=== PATIENT | female | born 1955 | race American Indian/Alaskan Native ===

== ENCOUNTER 2016-12-20 02:38 | Inpatient (IN) | payer OTHER ==
[2016-12-20] MEDS ORDERED: NACL 0.9% 500 ML 500 ML IV ONE (02:49)
[2016-12-20] MEDS ORDERED: TYLENOL ONE (03:26)
[2016-12-20] MEDS ORDERED: TYLENOL PO ONE (03:32)
[2016-12-20 03:48] LABS: Basophils % (Auto) 0.1 % (0.0-1.8); Hematocrit 38.8 % (30.3-42.9); Mean Corpuscular HGB Conc 34 % (30-34); Mean Corpuscular Hemoglobin 29 pg (28-32); Mean Corpuscular Volume 87 fl (79-97); Platelet Count 213 K/mm3 (140-440); Red Blood Count 4.47 M/mm3 (3.65-5.03); Red Cell Distribution Width 14.3 % (13.2-15.2); White Blood Count 12.9 K/mm3 (4.5-11.0)
[2016-12-20 03:57] LABS: INR 1.03 (0.87-1.13)
[2016-12-20 04:30] LABS: Bacteria,Urine 1+ /HPF (Negative); Bilirubin,Urine NEG (Negative); Blood,Urine NEG (Negative); Ketones,Urine NEG (Negative); Leukocyte Esterase,Urine SM (Negative); Mucus,Urine FEW /HPF; Nitrite,Urine NEG (Negative); Protein,Urine <15 mg/dL mg/dL (Negative)
--- NOTE | 2016-12-20 04:32 | Emergency Department Report ---
ED Fever HPI - General Chief Complaint: Fever Stated Complaint: FEVER Time Seen by Provider: 12/20/16 04:04 - History of Present Illness Initial Comments: 61-year-old female who has been having symptoms of URI for approximately 2 weeks states that she developed a fever today. Patient states that she didn't feel achy of a headache fever to 102 last evening. She denies nausea vomiting abdominal pain. She denies chest pain. She's had some cough and runny nose. Timing/Duration: this evening Fever Severity/Quality: greater than 102 F Associated Symptoms: cough, headache, muscle aches. denies: abdominal pain, chest pain, confusion, nausea/vomiting, rash, shortness of breath, sore throat, stiff neck, weakness ED Review of Systems ROS: Stated complaint: FEVER Other details as noted in HPI Comment: All other systems reviewed and negative Constitutional: chills, fever, malaise Eyes: denies: eye pain, eye discharge, vision change ENT: throat pain, congestion. denies: ear pain Respiratory: cough. denies: shortness of breath, wheezing Cardiovascular: denies: chest pain, palpitations Endocrine: no symptoms reported Gastrointestinal: denies: abdominal pain, nausea, diarrhea Genitourinary: denies: urgency, dysuria, discharge Musculoskeletal: denies: back pain, joint swelling, arthralgia Skin: denies: rash, lesions Neurological: denies: headache, weakness, paresthesias Psychiatric: denies: anxiety, depression Hematological/Lymphatic: denies: easy bleeding, easy bruising ED Past Medical Hx - Past Medical History Previous Medical History?: Yes Hx Hypertension: Yes - Surgical History Past Surgical History?: Yes Additional Surgical History: rt knee surgery - Family History Family history: no significant - Social History Smoking Status: Never Smoker Substance Use Type: Alcohol ED Physical Exam - General Limitations: No Limitations General appearance: alert, in no apparent distress - Head Head exam: Present: atraumatic, normocephalic - Eye Eye exam: Present: normal appearance, PERRL. Absent: scleral icterus, conjunctival injection - ENT ENT exam: Present: mucous membranes moist - Neck Neck exam: Present: normal inspection - Respiratory Respiratory exam: Present: normal lung sounds bilaterally. Absent: respiratory distress, wheezes - Cardiovascular Cardiovascular Exam: Present: normal rhythm, tachycardia, normal heart sounds. Absent: systolic murmur, diastolic murmur, rubs, gallop - GI/Abdominal GI/Abdominal exam: Present: soft, normal bowel sounds. Absent: distended, tenderness - Extremities Exam Extremities exam: Present: normal inspection, normal capillary refill - Back Exam Back exam: Present: normal inspection - Neurological Exam Neurological exam: Present: alert, oriented X3 - Psychiatric Psychiatric exam: Present: normal affect, normal mood - Skin Skin exam: Present: warm, dry, intact, normal color. Absent: rash ED Course Vital Signs 12/20/16 12/20/16 12/20/16 02:43 03:20 03:30 Temperature 102.4 F H Pulse Rate 141 H 114 H 114 H Respiratory 22 30 H 33 H Rate Blood Pressure 155/41 157/75 O2 Sat by Pulse 100 94 Oximetry 12/20/16 12/20/16 12/20/16 03:34 03:46 03:58 Temperature 99.9 F H Pulse Rate 114 H Respiratory Rate Blood Pressure 163/73 O2 Sat by Pulse Oximetry 12/20/16 12/20/16 12/20/16 04:00 04:15 04:17 Temperature Pulse Rate 111 H 107 H Respiratory 23 26 H 20 Rate Blood Pressure 154/78 150/77 O2 Sat by Pulse 97 Oximetry ED Medical Decision Making - Lab Data Result diagrams: 12/20/16 02:53 12/20/16 02:53 Laboratory Results - last 24 hr 12/20/16 12/20/16 12/20/16 02:53 02:53 02:53 WBC 12.9 H RBC 4.47 Hgb 13.0 Hct 38.8 MCV 87 MCH 29 MCHC 34 RDW 14.3 Plt Count 213 Lymph % (Auto) 3.6 L [place] % (Auto) 8.5 H Eos % (Auto) 0.0 Baso % (Auto) 0.1 Lymph # 0.5 L [place] # 1.1 H Eos # 0.0 Baso # 0.0 Seg Neutrophils % 87.8 H Seg Neutrophils # 11.3 H PT 14.0 INR 1.03 VBG pH 7.478 H Urine Color Urine Turbidity Urine pH Ur Specific [place] Urine Protein Urine Glucose (UA) Urine Ketones Urine Blood Urine Nitrite Urine Bilirubin Urine Urobilinogen Ur Leukocyte Esterase Urine WBC (Auto) Urine RBC (Auto) U Epithel Cells (Auto) Urine Bacteria (Auto) Urine Mucus 12/20/16 03:58 WBC RBC Hgb Hct MCV MCH MCHC RDW Plt Count Lymph % (Auto) [place] % (Auto) Eos % (Auto) Baso % (Auto) Lymph # [place] # Eos # Baso # Seg Neutrophils % Seg Neutrophils # PT INR VBG pH Urine Color Yellow Urine Turbidity Clear Urine pH 8.0 H Ur Specific [place] 1.013 Urine Protein <15 mg/dl Urine Glucose (UA) Neg Urine Ketones Neg Urine Blood Neg Urine Nitrite Neg Urine Bilirubin Neg Urine Urobilinogen 2.0 Ur Leukocyte Esterase Sm Urine WBC (Auto) 11.0 H Urine RBC (Auto) 4.0 U Epithel Cells (Auto) < 1.0 Urine Bacteria (Auto) 1+ Urine Mucus Few - Radiology Data Radiology results: report reviewed - Medical Decision Making Patient is a 61-year-old female here with fever and chills. Patient has had a cough. Fever to 102. Chest x-ray shows infiltrate on the right. Plan treat with IV antibiotics and likely overnight admission. Discussed case with hospitalist Portions of this chart were dictated with dictation software. There may be dictation errors contained within this note. Critical care attestation.: If time is entered above; I have spent that time in minutes in the direct care of this critically ill patient, excluding procedure time. ED Disposition Clinical Impression: Pneumonia Disposition: DC-09 OP ADMIT IP TO THIS HOSP Is pt being admited?: Yes Condition: Stable Instructions: Bacterial Pneumonia (ED) Referrals: PRIMARY CARE, [Primary Care Provider] - 3-5 Days
[2016-12-20] MEDS ORDERED: ZITHROMAX 500 MG in NACL 0.9% 250ML 250 ML IV ONE (04:34)
[2016-12-20] MEDS ORDERED: ROCEPHIN/NS 2 GM/100 ML 2 GM/100 ML BAG IV ONE (04:35)
[2016-12-20 04:42] LABS: Alanine Aminotransferase 27 units/L (7-56); Albumin 3.9 g/dL (3.9-5); Alkaline Phosphatase 74 units/L (35-129); Anion Gap 21 mmol/L; BUN/Creatinine Ratio 8; Blood Urea Nitrogen 8 mg/dL (7-17); Carbon Dioxide 22 mmol/L (22-30); Chloride 101.1 mmol/L (98-107); Glucose 150 mg/dL (65-100); Potassium 3.6 mmol/L (3.6-5.0); Sodium 140 mmol/L (137-145); Total Protein 7.7 g/dL (6.3-8.2)
--- NOTE | 2016-12-20 07:17 | XRay Report ---
AP CHEST: HISTORY: Sepsis There is a focal airspace opacity just lateral to the right hilum measuring 4 x 6 cm. This appears to represent a focal pneumonia. The remainder of the lungs are clear. No pleural effusion or pneumothorax. Normal heart and mediastinal structures. IMPRESSION: Early right lung pneumonia.
[2016-12-20] MEDS ORDERED: MILK OF MAGNESIA PO PRN (07:41)
[2016-12-20] MEDS ORDERED: DULCOLAX PR PRN (07:41)
[2016-12-20] MEDS ORDERED: ZOFRAN IV PRN (07:49)
--- NOTE | 2016-12-20 07:55 | History and Physical Report ---
History of Present Illness Date of examination: 12/20/16 Date of admission: 12/20/2016 Chief complaint: Dyspnea on exertion, cough, fever and headache. History of present illness: Patient is a 61 years old black female with past medical history of hypertension who presents to the emergency department presenting with 2 weeks of worsening dyspnea on light exertion, cough, fever and headache. Just over 2weeks ago the patient was at his normal baseline state of health. Now she has had progressive worsening of his dyspnea on exertion (PADILLA) to where he cannot walk across a room without becoming short of breath; she has never had anything like this before. she says the breathing troubles are from her lungs/chest and not her nose/congestion. She states walking or working brings on her breathing troubles and coughing and resting will help relieve those symptoms. Additionally, she has a productive cough with whitish mucus that is not bloody. patient also reported a subjective fever for the past 2 days. Past History Past Medical History: hypertension Past Surgical History: Other (knee surgery) Social history: lives with family. denies: smoking, alcohol abuse Family history: CAD, hypertension Medications and Allergies Allergies Allergy/AdvReac Type Severity Reaction Status Date / Time Penicillins Allergy Hives Verified 12/20/16 02:42 Home Medications Medication Instructions Recorded Confirmed Last Taken Type amLODIPine [Norvasc] 10 mg PO DAILY 12/20/16 12/20/16 12/18/16 History Active Meds: Active Medications Acetaminophen (Tylenol) 650 mg PO Q4H PRN PRN Reason: Pain MILD(1-3)/Fever >100.5/BAEZ Bisacodyl (Dulcolax) 10 mg IA QDAY PRN PRN Reason: Constipation unrelieved by MOM Azithromycin 500 mg/ Sodium (Chloride) 250 mls @ 250 mls/hr IV Q24HR ONE Stop: 12/20/16 08:42 Ceftriaxone Sodium (Rocephin/Ns 1 Gm/50 Ml) 1 gm in 50 mls @ 100 mls/hr IV Q2HR ONE Stop: 12/20/16 08:16 Sodium Chloride (Nacl 0.9% 1000 Ml) 1,000 mls @ 75 mls/hr IV DIRECT OMAR Magnesium Hydroxide (Milk Of Magnesia) 30 ml PO Q4H PRN PRN Reason: Constipation Ondansetron HCl (Zofran) 4 mg IM Q4H PRN PRN Reason: Nausea And Vomiting Review of Systems Constitutional: fever, chills, fatigue, weakness, poor appetite, no weight loss , no weight gain, no sweats, no night sweats Ears, nose, mouth and throat: no ear discharge, no tinnitis, no decreased hearing, no nose pain, no nasal congestion Breasts: no change in shape, no swelling Cardiovascular: no palpitations, no rapid/irregular heart beat, no edema, no syncope, no lightheadedness Respiratory: cough, cough with sputum (white ), shortness of breath, dyspnea on exertion, congestion, no excessive sputum Gastrointestinal: no vomiting, no diarrhea, no constipation, no change in bowel habits Genitourinary Female: no urinary frequency, no urgency, no stress incontinence, no post void dribbling Rectal: no incontinence, no bleeding Musculoskeletal: no arm numbness/tingling, no low back pain, no shooting leg pain, no leg numbness/tingling Integumentary: no redness, no sores, no wounds Neurological: no numbness, no tingling, no seizures, no syncope Psychiatric: no change in sleep habits, no sleep disturbances, no insomnia, no hypersomnia, no change in appetite Endocrine: no heat intolerance, no polyphagia, no excessive thirst, no polydipsia Hematologic/Lymphatic: no easy bruising, no easy bleeding Allergic/Immunologic: no urticaria, no allergic rhinitis Exam - Constitutional Vitals: Temp Pulse Resp BP Pulse Ox 99.1 F 97 H 22 97/69 97 12/20/16 07:54 12/20/16 07:30 12/20/16 07:30 12/20/16 07:30 12/20/16 04:17 General appearance: Present: no acute distress - EENT Eyes: Present: PERRL ENT: hearing intact - Neck Neck: Present: supple - Respiratory Respiratory effort: normal Respiratory: bilateral: diminished - Cardiovascular Rhythm: regular Heart Sounds: Present: S1 & S2 - Extremities Extremities: no ischemia Peripheral Pulses: within normal limits - Abdominal General gastrointestinal: Present: soft, non-tender Female genitourinary: Present: deferred - Rectal Rectal Exam: deferred - Integumentary Integumentary: Present: clear, warm, dry - Musculoskeletal Musculoskeletal: strength equal bilaterally - Psychiatric Psychiatric: appropriate mood/affect - Neurologic Neurologic: CNII-XII intact - Allied Health Allied health notes reviewed: nursing Results - Labs CBC & Chem 7: 12/20/16 02:53 12/20/16 02:53 Labs: Laboratory Last Values WBC 12.9 K/mm3 (4.5-11.0) H 12/20/16 02:53 RBC 4.47 M/mm3 (3.65-5.03) 12/20/16 02:53 Hgb 13.0 gm/dl (10.1-14.3) 12/20/16 02:53 Hct 38.8 % (30.3-42.9) 12/20/16 02:53 MCV 87 fl (79-97) 12/20/16 02:53 MCH 29 pg (28-32) 12/20/16 02:53 MCHC 34 % (30-34) 12/20/16 02:53 RDW 14.3 % (13.2-15.2) 12/20/16 02:53 Plt Count 213 K/mm3 (140-440) 12/20/16 02:53 Lymph % (Auto) 3.6 % (13.4-35.0) L 12/20/16 02:53 [place] % (Auto) 8.5 % (0.0-7.3) H 12/20/16 02:53 Eos % (Auto) 0.0 % (0.0-4.3) 12/20/16 02:53 Baso % (Auto) 0.1 % (0.0-1.8) 12/20/16 02:53 Lymph # 0.5 K/mm3 (1.2-5.4) L 12/20/16 02:53 [place] # 1.1 K/mm3 (0.0-0.8) H 12/20/16 02:53 Eos # 0.0 K/mm3 (0.0-0.4) 12/20/16 02:53 Baso # 0.0 K/mm3 (0.0-0.1) 12/20/16 02:53 Seg Neutrophils % 87.8 % (40.0-70.0) H 12/20/16 02:53 Seg Neutrophils # 11.3 K/mm3 (1.8-7.7) H 12/20/16 02:53 PT 14.0 Sec. (12.2-14.9) 12/20/16 02:53 INR 1.03 (0.87-1.13) 12/20/16 02:53 VBG pH 7.478 (7.320-7.420) H 12/20/16 02:53 Sodium 140 mmol/L (137-145) 12/20/16 02:53 Potassium 3.6 mmol/L (3.6-5.0) 12/20/16 02:53 Chloride 101.1 mmol/L (98-107) 12/20/16 02:53 Carbon Dioxide 22 mmol/L (22-30) 12/20/16 02:53 Anion Gap 21 mmol/L 12/20/16 02:53 BUN 8 mg/dL (7-17) 12/20/16 02:53 Creatinine 1.0 mg/dL (0.7-1.2) 12/20/16 02:53 Estimated GFR > 60 ml/min 12/20/16 02:53 BUN/Creatinine Ratio 8 % 12/20/16 02:53 Glucose 150 mg/dL (65-100) H 12/20/16 02:53 Lactic Acid 0.90 mmol/L (0.7-2.0) 12/20/16 05:11 Calcium 9.0 mg/dL (8.4-10.2) 12/20/16 02:53 Total Bilirubin 0.80 mg/dL (0.1-1.2) 12/20/16 02:53 AST 30 units/L (5-40) 12/20/16 02:53 ALT 27 units/L (7-56) 12/20/16 02:53 Alkaline Phosphatase 74 units/L (35-129) 12/20/16 02:53 Total Protein 7.7 g/dL (6.3-8.2) 12/20/16 02:53 Albumin 3.9 g/dL (3.9-5) 12/20/16 02:53 Albumin/Globulin Ratio 1.0 % 12/20/16 02:53 Urine Color Yellow (Yellow) 12/20/16 03:58 Urine Turbidity Clear (Clear) 12/20/16 03:58 Urine pH 8.0 (5.0-7.0) H 12/20/16 03:58 Ur Specific [place] 1.013 (1.003-1.030) 12/20/16 03:58 Urine Protein <15 mg/dl mg/dL (Negative) 12/20/16 03:58 Urine Glucose (UA) Neg mg/dL (Negative) 12/20/16 03:58 Urine Ketones Neg mg/dL (Negative) 12/20/16 03:58 Urine Blood Neg (Negative) 12/20/16 03:58 Urine Nitrite Neg (Negative) 12/20/16 03:58 Urine Bilirubin Neg (Negative) 12/20/16 03:58 Urine Urobilinogen 2.0 mg/dL (<2.0) 12/20/16 03:58 Ur Leukocyte Esterase Sm (Negative) 12/20/16 03:58 Urine WBC (Auto) 11.0 /HPF (0.0-6.0) H 12/20/16 03:58 Urine RBC (Auto) 4.0 /HPF (0.0-6.0) 12/20/16 03:58 U Epithel Cells (Auto) < 1.0 /HPF (0-13.0) 12/20/16 03:58 Urine Bacteria (Auto) 1+ /HPF (Negative) 12/20/16 03:58 Urine Mucus Few /HPF 12/20/16 03:58 - Imaging and Cardiology Chest x-ray: image reviewed (early right lung pneumonia) Assessment and Plan Assessment and plan: Patient is a 61 years old black female with past medical history of hypertension who presents to the emergency department presenting with 2 weeks of worsening dyspnea on light exertion, cough, fever and headache. Chest xray revealed early right lung pneumonia. ASSESSMENT/PLAN Sepsis due to pneumonia Blood and urine culture collected prior to antibiotic Follow-up with cultures Fluid resuscitation and gently IV fluid hydration Started on empiric treatment IV azithromycin and Rocephin. Supportive care Pneumonia Chest x-ray revealed early right lung pneumonia. Also fever and physical assessment indicates pneumonia. Started on empiric treatment IV azithromycin and Rocephin. Albuterol nebulizer treatments every 4 hours when necessary Leukocytosis Secondary to sepsis Treat with antibiotic and we will repeat CBC Closely monitor Urinary tract infection Urine culture collected and we will follow cultures Continue on IV Rocephin Hypertension Continue home antihypertensive medications Closely monitor blood pressure DVT prophylaxis Lovenox Advance Directives: Yes VTE prophylaxis?: Chemical Contraindication Mechanical VTE Prophylaxis: Treatment Not Indicated Plan of care discussed with patient/family: Yes
[2016-12-20] MEDS ORDERED: PROVENTIL IH PRN (08:38)
[2016-12-20] MEDS: TYLENOL PO PRN ×2 (14:36→18:03)
[2016-12-20] MEDS: LOVENOX SUB-Q SCH (14:37)
[2016-12-20] MEDS: NACL 0.9% 1000 ML 1,000 ML IV SCH (14:41)
[2016-12-21] MEDS: NACL 0.9% 1000 ML 1,000 ML IV SCH (05:36)
[2016-12-21 05:40] LABS: Basophils % (Auto) 0.1 % (0.0-1.8); Eosinophils % (Auto) 0.5 % (0.0-4.3); Hematocrit 35.5 % (30.3-42.9); Mean Corpuscular HGB Conc 34 % (30-34); Mean Corpuscular Hemoglobin 29 pg (28-32); Mean Corpuscular Volume 87 fl (79-97); Platelet Count 209 K/mm3 (140-440); Red Blood Count 4.07 M/mm3 (3.65-5.03); Red Cell Distribution Width 14.1 % (13.2-15.2); White Blood Count 10.8 K/mm3 (4.5-11.0)
[2016-12-21 05:55] LABS: Anion Gap 14 mmol/L; BUN/Creatinine Ratio 12; Blood Urea Nitrogen 11 mg/dL (7-17); Calcium 8.7 mg/dL (8.4-10.2); Carbon Dioxide 27 mmol/L (22-30); Chloride 107.4 mmol/L (98-107); Glucose 94 mg/dL (65-100); Potassium 3.6 mmol/L (3.6-5.0); Sodium 145 mmol/L (137-145)
[2016-12-21] MEDS ORDERED: ZITHROMAX 500 MG in NACL 0.9% 250ML 250 ML IV ONE (08:00)
[2016-12-21] MEDS ORDERED: NORVASC PO SCH (10:00)
[2016-12-21] MEDS ORDERED: ROCEPHIN/NS 1 GM/50 ML 1 GM/50 ML BAG IV ONE (10:00)
[2016-12-21] MEDS: LOVENOX SUB-Q SCH (10:08)
[2016-12-21] MEDS ORDERED: Fluarix Quad 2017-2018(36 MOS+) IM ONE (12:16)
[2016-12-21] MEDS ORDERED: PNEUMOVAX 23 IM ONE (12:20)
--- NOTE | 2016-12-21 13:17 | Progress Note ---
Assessment and Plan Assessment and plan: Patient is a 61 years old black female with past medical history of hypertension who presents to the emergency department presenting with 2 weeks of worsening dyspnea on light exertion, cough, fever and headache. Chest xray revealed early right lung pneumonia. ASSESSMENT/PLAN Sepsis due to pneumonia improving continue abx, blood cx no growth so far Pneumonia continue abx Urinary tract infection Urine cx contaminated, abx as above should also rx UTI Hypertension Continue home antihypertensive medications Closely monitor blood pressure Hospitalist Physical - Constitutional Vitals: Temp Pulse Resp BP Pulse Ox 99.4 F 96 H 18 119/67 98 12/21/16 12:00 12/21/16 12:00 12/21/16 12:00 12/21/16 12:00 12/21/16 12:00 General appearance: Present: no acute distress Results - Labs CBC & Chem 7: 12/21/16 05:04 12/21/16 05:04 Labs: Laboratory Last Values WBC 10.8 K/mm3 (4.5-11.0) 12/21/16 05:04 RBC 4.07 M/mm3 (3.65-5.03) 12/21/16 05:04 Hgb 12.0 gm/dl (10.1-14.3) 12/21/16 05:04 Hct 35.5 % (30.3-42.9) 12/21/16 05:04 MCV 87 fl (79-97) 12/21/16 05:04 MCH 29 pg (28-32) 12/21/16 05:04 MCHC 34 % (30-34) 12/21/16 05:04 RDW 14.1 % (13.2-15.2) 12/21/16 05:04 Plt Count 209 K/mm3 (140-440) 12/21/16 05:04 Lymph % (Auto) 16.8 % (13.4-35.0) 12/21/16 05:04 [place] % (Auto) 9.0 % (0.0-7.3) H 12/21/16 05:04 Eos % (Auto) 0.5 % (0.0-4.3) 12/21/16 05:04 Baso % (Auto) 0.1 % (0.0-1.8) 12/21/16 05:04 Lymph # 1.8 K/mm3 (1.2-5.4) 12/21/16 05:04 [place] # 1.0 K/mm3 (0.0-0.8) H 12/21/16 05:04 Eos # 0.1 K/mm3 (0.0-0.4) 12/21/16 05:04 Baso # 0.0 K/mm3 (0.0-0.1) 12/21/16 05:04 Seg Neutrophils % 73.6 % (40.0-70.0) H 12/21/16 05:04 Seg Neutrophils # 7.9 K/mm3 (1.8-7.7) H 12/21/16 05:04 PT 14.0 Sec. (12.2-14.9) 12/20/16 02:53 INR 1.03 (0.87-1.13) 12/20/16 02:53 VBG pH 7.478 (7.320-7.420) H 12/20/16 02:53 Sodium 145 mmol/L (137-145) 12/21/16 05:04 Potassium 3.6 mmol/L (3.6-5.0) 12/21/16 05:04 Chloride 107.4 mmol/L (98-107) H 12/21/16 05:04 Carbon Dioxide 27 mmol/L (22-30) 12/21/16 05:04 Anion Gap 14 mmol/L 12/21/16 05:04 BUN 11 mg/dL (7-17) 12/21/16 05:04 Creatinine 0.9 mg/dL (0.7-1.2) 12/21/16 05:04 Estimated GFR > 60 ml/min 12/21/16 05:04 BUN/Creatinine Ratio 12 % 12/21/16 05:04 Glucose 94 mg/dL (65-100) 12/21/16 05:04 Lactic Acid 0.90 mmol/L (0.7-2.0) 12/20/16 05:11 Calcium 8.7 mg/dL (8.4-10.2) 12/21/16 05:04 Total Bilirubin 0.80 mg/dL (0.1-1.2) 12/20/16 02:53 AST 30 units/L (5-40) 12/20/16 02:53 ALT 27 units/L (7-56) 12/20/16 02:53 Alkaline Phosphatase 74 units/L (35-129) 12/20/16 02:53 Total Protein 7.7 g/dL (6.3-8.2) 12/20/16 02:53 Albumin 3.9 g/dL (3.9-5) 12/20/16 02:53 Albumin/Globulin Ratio 1.0 % 12/20/16 02:53 Urine Color Yellow (Yellow) 12/20/16 03:58 Urine Turbidity Clear (Clear) 12/20/16 03:58 Urine pH 8.0 (5.0-7.0) H 12/20/16 03:58 Ur Specific [place] 1.013 (1.003-1.030) 12/20/16 03:58 Urine Protein <15 mg/dl mg/dL (Negative) 12/20/16 03:58 Urine Glucose (UA) Neg mg/dL (Negative) 12/20/16 03:58 Urine Ketones Neg mg/dL (Negative) 12/20/16 03:58 Urine Blood Neg (Negative) 12/20/16 03:58 Urine Nitrite Neg (Negative) 12/20/16 03:58 Urine Bilirubin Neg (Negative) 12/20/16 03:58 Urine Urobilinogen 2.0 mg/dL (<2.0) 12/20/16 03:58 Ur Leukocyte Esterase Sm (Negative) 12/20/16 03:58 Urine WBC (Auto) 11.0 /HPF (0.0-6.0) H 12/20/16 03:58 Urine RBC (Auto) 4.0 /HPF (0.0-6.0) 12/20/16 03:58 U Epithel Cells (Auto) < 1.0 /HPF (0-13.0) 12/20/16 03:58 Urine Bacteria (Auto) 1+ /HPF (Negative) 12/20/16 03:58 Urine Mucus Few /HPF 12/20/16 03:58
[2016-12-22] MEDS: TYLENOL PO PRN (03:28)
[2016-12-22 07:17] VITALS: BP 126/53
--- NOTE | 2016-12-22 09:14 | Discharge Summary ---
Providers - Providers Date of Admission: 12/20/16 08:56 Attending physician: GILL COVINGTON MD Primary care physician: SORT SUPERVISOR Hospitalization Condition: Stable Hospital course: Patient is a 61 years old black female with past medical history of hypertension who presents to the emergency department presenting with 2 weeks of worsening dyspnea on light exertion, cough, fever and headache. Chest xray revealed early right lung pneumonia. ASSESSMENT/PLAN Sepsis due to pneumonia improving continue abx, blood cx no growth so far Pneumonia continue abx Urinary tract infection Urine cx contaminated, abx as above should also rx UTI Hypertension Continue home antihypertensive medications Closely monitor blood pressure Disposition: DC-01 TO HOME OR SELFCARE Time spent for discharge: 33 minutes Core Measure Documentation - Palliative Care Palliative Care/ Comfort Measures: Not Applicable - Core Measures Any of the following diagnoses?: none Exam - Constitutional Vitals: Temp Pulse Resp BP Pulse Ox 98.9 F 84 18 126/53 94 12/22/16 07:15 12/22/16 07:15 12/22/16 07:15 12/22/16 07:15 12/22/16 07:15 General appearance: Present: no acute distress, well-nourished - EENT Eyes: Present: PERRL ENT: hearing intact, clear oral mucosa - Neck Neck: Present: supple, normal ROM - Respiratory Respiratory effort: normal Respiratory: bilateral: CTA - Cardiovascular Heart Sounds: Present: S1 & S2. Absent: rub, click - Extremities Extremities: pulses symmetrical, No edema Peripheral Pulses: within normal limits - Abdominal General gastrointestinal: Present: soft, non-tender, non-distended, normal bowel sounds Female genitourinary: Present: normal - Integumentary Integumentary: Present: clear, warm, dry - Musculoskeletal Musculoskeletal: gait normal, strength equal bilaterally - Psychiatric Psychiatric: appropriate mood/affect, intact judgment & insight - Neurologic Neurologic: CNII-XII intact, moves all extremities Plan Follow up with: PRIMARY CARE, [Primary Care Provider] - 3-5 Days Prescriptions: amLODIPine [Norvasc] 10 mg PO DAILY #30 tablet Levofloxacin [Levaquin] 750 mg PO QDAY #5 tablet
[2016-12-22] MEDS ORDERED: MORPHINE IV PRN (10:03)
[2016-12-22] MEDS: LOVENOX SUB-Q SCH (11:12)
== END 2016-12-22 12:00 | disposition home or self-care (01) | DRG 871 ==
LOC: ED 02:38 → 4A 08:56 → 3A 12-21 20:23
PROVIDERS: ADMIT Internal Medicine; ATTEND Internal Medicine
DX: A41.9 Sepsis, unspecified organism (principal); J18.9 Pneumonia, unspecified organism; N39.0 Urinary tract infection, site not specified; I10 Essential (primary) hypertension; I25.10 Atherosclerotic heart disease of native coronary artery without angina pectoris; Z88.0 Allergy status to penicillin
CPT/HCPCS: 36415; 71010; 80048; 80053; 81001; 82140; 82805; 85025; 85610; 87040; 87086; 87400; 90686; 90732; 93005; 93010; 96361; 96365; 96375; J0456; J0696; J1650; J7030; J7040; J7050

== ENCOUNTER 2017-04-05 04:33 | Emergency (ER) | payer SELFPAY ==
[2017-04-05] MEDS ORDERED: MOTRIN PO ONE (05:56)
--- NOTE | 2017-04-05 06:41 | XRay Report ---
FINAL REPORT EXAM: XR CHEST ROUTINE 2V HISTORY: cough and fever TECHNIQUE: PA and lateral chest radiographs PRIORS: None. FINDINGS: No mediastinal shift. Cardiac silhouette is not enlarged. No pneumothorax, effusion, or focal pulmonary opacity. No acute skeletal finding. IMPRESSION: No focal pulmonary opacity.
[2017-04-05] MEDS ORDERED: TESSALON PERLES PO ONE (08:07)
--- NOTE | 2017-04-05 09:02 | Emergency Department Report ---
- General Chief Complaint: Upper Respiratory Infection Stated Complaint: COLD SX Time Seen by Provider: 04/05/17 08:07 Source: patient Mode of arrival: Ambulatory Limitations: No Limitations - History of Present Illness Initial Comments: This is a 61-year-old female nontoxic, well nourished in appearance, no acute signs of distress presents to the ED with c/o of productive cough, body aches, fever, chills, rhinorrhea, sinus pain, and nasal congestion 2 days. Patient describes productive cough as yellow/green mucus production. Patient denies any recent travels, long car rides, recent hospital stays. Patient denies any calf pain or calf tenderness. Denies any hemoptysis. Patient denies chest pain , shortness of breath, fever, chills, nausea, vomiting, headache, stiff neck, numbness, tingling. Patient states allergies to PCN. PMH includes HTN. MD Complaint: cough, rhinorrhea, nasal congestion, sinus pain -: days(s) (2) Severity: mild Severity scale (0 -10): 8 Quality: aching Consistency: constant Improves With: nothing Worsens With: nothing Associated Symptoms: fever, chills, rhinorrhea, nasal congestion, cough. denies : myalgias, diaphoresis, headache, sore throat, stiff neck, chest pain, shortness of breath, abdominal pain, nausea, vomiting, diarrhea, dysuria, rash, confusion, right sweats, weight loss, epistaxis, hoarseness, ear pain Treatments Prior to Arrival: none - Related Data Previous Rx's Medication Instructions Recorded Last Taken Type Levofloxacin [Levaquin] 750 mg PO QDAY #5 tablet 12/22/16 Unknown Rx amLODIPine [Norvasc] 10 mg PO DAILY #30 tablet 12/22/16 Unknown Rx oxyCODONE /ACETAMINOPHEN [Percocet 1 tab PO Q6HR PRN #14 tablet 12/22/16 Unknown Rx 5/325] Benzonatate [Tessalon Perle] 100 mg PO Q8H PRN #20 capsule 04/05/17 Unknown Rx Ibuprofen [Motrin] 600 mg PO Q6H PRN #30 tablet 04/05/17 Unknown Rx Levofloxacin [Levaquin TAB] 750 mg PO QDAY #5 tablet 04/05/17 Unknown Rx Oseltamivir [Tamiflu] 75 mg PO BID #14 cap 04/05/17 Unknown Rx Allergies Allergy/AdvReac Type Severity Reaction Status Date / Time Penicillins Allergy Hives Verified 12/20/16 02:42 ED Review of Systems ROS: Stated complaint: COLD SX Other details as noted in HPI Constitutional: chills, fever Eyes: denies: eye pain, eye discharge, vision change ENT: denies: ear pain, throat pain Respiratory: cough. denies: shortness of breath, wheezing Cardiovascular: denies: chest pain, palpitations Endocrine: no symptoms reported Gastrointestinal: denies: abdominal pain, nausea, diarrhea Genitourinary: denies: urgency, dysuria, discharge Musculoskeletal: denies: back pain, joint swelling, arthralgia Skin: denies: rash, lesions Neurological: denies: headache, weakness, paresthesias Psychiatric: denies: anxiety, depression Hematological/Lymphatic: denies: easy bleeding, easy bruising ED Past Medical Hx - Past Medical History Hx Hypertension: Yes - Surgical History Additional Surgical History: rt knee surgery - Social History Smoking Status: Never Smoker Substance Use Type: None - Medications Home Medications: Home Medications Medication Instructions Recorded Confirmed Last Taken Type Levofloxacin [Levaquin] 750 mg PO QDAY #5 tablet 12/22/16 Unknown Rx amLODIPine [Norvasc] 10 mg PO DAILY #30 tablet 12/22/16 Unknown Rx oxyCODONE /ACETAMINOPHEN [Percocet 1 tab PO Q6HR PRN #14 tablet 12/22/16 Unknown Rx 5/325] Benzonatate [Tessalon Perle] 100 mg PO Q8H PRN #20 capsule 04/05/17 Unknown Rx Ibuprofen [Motrin] 600 mg PO Q6H PRN #30 tablet 04/05/17 Unknown Rx Levofloxacin [Levaquin TAB] 750 mg PO QDAY #5 tablet 04/05/17 Unknown Rx Oseltamivir [Tamiflu] 75 mg PO BID #14 cap 04/05/17 Unknown Rx ED Physical Exam - General Limitations: No Limitations General appearance: alert, in no apparent distress - Head Head exam: Present: atraumatic, normocephalic, normal inspection - Eye Eye exam: Present: normal appearance, PERRL, EOMI. Absent: scleral icterus, conjunctival injection, nystagmus, periorbital swelling, periorbital tenderness Pupils: Present: normal accommodation - ENT ENT exam: Present: normal exam, normal orophraynx, mucous membranes moist, TM's normal bilaterally, normal external ear exam - Neck Neck exam: Present: normal inspection, full ROM. Absent: tenderness, meningismus, lymphadenopathy, thyromegaly - Respiratory Respiratory exam: Present: normal lung sounds bilaterally. Absent: respiratory distress, wheezes, rales, rhonchi, stridor, chest wall tenderness, accessory muscle use, decreased breath sounds, prolonged expiratory - Cardiovascular Cardiovascular Exam: Present: regular rate, normal rhythm, normal heart sounds. Absent: irregular rhythm, systolic murmur, diastolic murmur, rubs, gallop - GI/Abdominal GI/Abdominal exam: Present: soft, normal bowel sounds. Absent: distended, tenderness, guarding, rebound, rigid, diminished bowel sounds - Rectal Rectal exam: Present: deferred - Extremities Exam Extremities exam: Present: normal inspection, full ROM, normal capillary refill. Absent: tenderness, pedal edema, joint swelling, calf tenderness - Back Exam Back exam: Present: normal inspection, full ROM. Absent: tenderness, CVA tenderness (R), CVA tenderness (L), muscle spasm, paraspinal tenderness, vertebral tenderness, rash noted - Neurological Exam Neurological exam: Present: alert, oriented X3, CN II-XII intact, normal gait, reflexes normal - Psychiatric Psychiatric exam: Present: normal affect, normal mood - Skin Skin exam: Present: warm, dry, intact, normal color. Absent: rash - Other Other exam information: positive frontal sinus tenderness. ED Course Vital Signs 04/05/17 04/05/17 04:41 05:53 Temperature 100.0 F H 99.8 F H Pulse Rate 121 H 104 H Respiratory 18 18 Rate Blood Pressure 144/77 Blood Pressure 138/78 [Left] O2 Sat by Pulse 96 99 Oximetry - Reevaluation(s) Reevaluation #1: 04/05/17 08:59 Patient is speaking in full sentences with no signs of distress noted. ED Medical Decision Making - Medical Decision Making This is a 61-year-old female that presents with influenza A and Sinusitis. Patient is stable and was examined by me. Chest x-ray has been obtained and dictated by radiologist within normal limits. Patient notified of x-ray results with no plates noted by the patient. Influenza swab positive for A. Patient received Motrin and Tessalon Perles in the ED. Vital signs stable prior to discharge. Patient is afebrile. Normal heart rate. I'll treat patient with Tamiflu and Levo due to type 1 allergies to PCN at discharge due to patient stating symptoms are worsening. Patient was rehydrated in the ER and patient tolerated well with no signs of nasuea or vomiting. Patient was instructed to rest and increase hydration and take motrin for fever as directed. Patient was instructed Follow-up with a primary care doctor in 3-5 days or if symptoms worsen and continue return to emergency room as soon as possible. At time time of discharge, the patient does not seem toxic or ill in appearance. No acute signs of distress noted. Patient agrees to discharge treatment plan of care. No further questions noted by the patient. Critical care attestation.: If time is entered above; I have spent that time in minutes in the direct care of this critically ill patient, excluding procedure time. ED Disposition Clinical Impression: Influenza A Sinusitis Qualifiers: Sinusitis location: frontal Chronicity: acute Recurrence: non-recurrent Qualified Code(s): J01.10 - Acute frontal sinusitis, unspecified Disposition: DC-01 TO HOME OR SELFCARE Is pt being admited?: No Does the pt Need Aspirin: No Condition: Stable Instructions: Influenza (ED), Oseltamivir (By mouth), Levofloxacin (By mouth), Fever in Adults (ED) Additional Instructions: Follow-up with a primary care doctor in 3-5 days or if symptoms worsen and continue return to emergency room as soon as possible. Increase rest and hydration and take Motrin as prescribed for fever episode. Prescriptions: Benzonatate [Tessalon Perle] 100 mg PO Q8H PRN #20 capsule PRN Reason: Cough Ibuprofen [Motrin] 600 mg PO Q6H PRN #30 tablet PRN Reason: Fever Levofloxacin [Levaquin TAB] 750 mg PO QDAY #5 tablet Oseltamivir [Tamiflu] 75 mg PO BID #14 cap Referrals: PRIMARY CARE, [Primary Care Provider] - 3-5 Days SUSANNE HANNAH MD [Staff Physician] - 3-5 Days [facility] [Outside] - 3-5 Days [facility] [Outside] - 3-5 Days
[2017-04-05 09:12] VITALS: BP 138/72
== END 2017-04-05 09:25 | disposition home or self-care (01) ==
LOC: ED 04:33
DX: J09.X2 Influenza due to identified novel influenza A virus with other respiratory manifestations (principal); I10 Essential (primary) hypertension
CPT/HCPCS: 71046; 87400; 99283